=== PATIENT | female | born 1955 | race Caucasian/White ===

== ENCOUNTER → 2016-08-17 | Outpatient (CLI) | payer BC ==
[~2016-08-17] MED LIST: ATOR40TA64 PO; ESCI10TA47 PO; LEVO50TA11 PO; NEBI5TAB8 PO; OMEP40CA52 PO
== END ==
LOC: WC.BC 13:11
DX: Z12.31 Encounter for screening mammogram for malignant neoplasm of breast (principal)
CPT/HCPCS: 77063; G0202